=== PATIENT | female | born 1990 | race Two or more races ===

== ENCOUNTER 2021-08-10 14:58 | Emergency (ER) | payer OTHER ==
[~2021-08-10] VITALS: Ht 167.6 cm; Wt 74.8 kg
[2021-08-10] MEDS: PANTOPRAZOLE 40 MG VIAL IV ONE (13:35)
--- NOTE | 2021-08-10 15:08 | NUR ---
PT CAME TO ER C/O CHEST PAIN SINCE 11AM TODAY. PAIN IS LOCATED IN THE MEDIAL CHEST, AND IS A BURNING/PRESSURE SENSATION. NONRADIATING, RATED 9/10. ADMITS NAUSEA, SOB, LIGHTHEADEDNESS. DENIES VOMITING. CHANGED TO GOWN, ON MONITOR.
[2021-08-10] MEDS ORDERED: PANTOPRAZOLE 40 MG VIAL ONE (15:21)
--- NOTE | 2021-08-10 15:30 | NUR ---
URINE SAMPLE OBTAINED AND SENT TO LAB
--- NOTE | 2021-08-10 15:30 | NUR ---
RADIOLOGY AT BEDSIDE
--- NOTE | 2021-08-10 15:35 | NUR ---
LAB AT BEDSIDE
[2021-08-10 15:47] LABS: BASOPHILS # (AUTO) 0.1 K/uL (0.0-0.2); BASOPHILS % (AUTO) 0.8 % (0.0-2.0); EOSINOPHILS % (AUTO) 2.3 % (0.0-6.0); HEMATOCRIT 43 % (33-45); HEMOGLOBIN 14.2 g/dL (11.5-14.8); LYMPHOCYTES # (AUTO) 2.7 K/uL (0.8-4.8); LYMPHOCYTES % (AUTO) 18.1 % (20.0-44.0); MEAN CORPUSCULAR HGB CONC 33 g/dl (31.0-36.0); MEAN CORPUSCULAR VOLUME 94 fL (82-100); MONOCYTES # (AUTO) 1.1 K/uL (0.1-1.30); MONOCYTES % (AUTO) 7.4 % (2.0-12.0); NEUTROPHILS # (AUTO) 10.5 K/uL (1.8-8.9); NEUTROPHILS % (AUTO) 71.4 % (43.0-81.0); PLATELET COUNT (AUTO) 325 K/uL (150-450); RED BLOOD CELL COUNT(AUTO) 4.59 MIL/uL (4.0-5.2); WHITE BLOOD COUNT (AUTO) 14.7 K/uL (4.3-11.0)
[2021-08-10 15:54] LABS: CALCIUM, SERUM 8.7 mg/dL (8.5-10.1); CARBON DIOXIDE 29 mmol/L (21-32); CHLORIDE 102 mmol/L (98-107); CREATININE 0.9 mg/dL (0.6-1.3); GLUCOSE 91 mg/dL (74-106); POTASSIUM 3.5 mmol/L (3.5-5.1); SODIUM SERUM 140 mmol/L (136-145); UREA NITROGEN, BLOOD 12 mg/dL (7-18)
[2021-08-10 16:02] LABS: ALANINE AMINOTRANSFERASE 35 U/L (12-78); ALBUMIN 3.8 g/dL (3.4-5.0); ALKALINE PHOSPHATASE 85 U/L (46-116); ASPARTATE AMINOTRANSFERASE 16 U/L (15-37); BILIRUBIN,TOTAL 0.2 mg/dL (0.2-1.0); LIPASE 155 U/L (73-393); TOTAL PROTEIN, SERUM 7.9 g/dL (6.4-8.2)
[2021-08-10 16:06] LABS: BILIRUBIN,URINE NEGATIVE (NEGATIVE); COLOR,URINE YELLOW (YELLOW); LEUKOCYTE ESTERASE ,URINE NEGATIVE (NEGATIVE); NITRITE, URINE NEGATIVE (NEGATIVE); PH,URINE 6.5 (5.0-8.0); PROTEIN,URINE TRACE mg/dl (NEGATIVE); UGLUCOSE NEGATIVE (NEGATIVE); UROBILINOGEN,URINE 0.2 EU/dL (0.2)
[2021-08-10 16:13] LABS: BACTERIA,URINE Moderate /HPF (None Seen); RBC,URINE 0-2 /HPF (0-2); SQUAMOUS EPITHELIAL CELL,UR Few /HPF (None Seen); WBC,URINE 0-2 /HPF (0-3)
[2021-08-10] MEDS ORDERED: MAG HYDROX/AL HYDROX/SIMETH 30 ML UDC ONE (16:29)
[2021-08-10] MEDS ORDERED: ACETAMINOPHEN ES 500 MG TABLET ONE (16:30)
[2021-08-10] MEDS ORDERED: KETOROLAC TROMETHAMINE INJ 30 MG/ML VIAL ONE (16:30)
[2021-08-10] MEDS ORDERED: LIDOCAINE VISCOUS 2% UD 15 ML UDC ONE (16:30)
[2021-08-10] MEDS: KETOROLAC TROMETHAMINE INJ 30 MG/ML VIAL IV ONE (16:35)
[2021-08-10] MEDS: MAG HYDROX/AL HYDROX/SIMETH 30 ML UDC PO ONE (16:42)
[2021-08-10] MEDS: LIDOCAINE VISCOUS 2% UD 15 ML UDC MM ONE (16:42)
[2021-08-10] MEDS: ACETAMINOPHEN ES 500 MG TABLET PO ONE (16:43)
--- NOTE | 2021-08-10 16:52 | NUR ---
Patient discharged to home in stable condition. Written and verbal after care instructions given. Patient verbalizes understanding of instruction.
--- NOTE | 2021-08-10 16:52 | NUR ---
IV removed. Catheter intact and site benign. Pressure and 4x4 applied to site. No bleeding noted.
[2021-08-10 16:53] VITALS: BP 144/82
== END 2021-08-10 16:53 | disposition home or self-care (01) ==
LOC: ER 15:01
DX: R07.89 Other chest pain (principal); R10.13 Epigastric pain; R10.12 Left upper quadrant pain
CPT/HCPCS: 36415; 71045; 76705; 80048; 80076; 81001; 83690; 84484; 84703; 85025; 87077; 87086; 87186; 93005; 96374; 96375; 99285; C9113; J1885